=== PATIENT | female | born 1940 | race Caucasian/White ===

== ENCOUNTER 2016-06-30 12:40 | Emergency (ER) | payer MEDICARE, OTHER ==
[2016-06-30 12:59] VITALS: BMI 33.3
[2016-06-30] MEDS ORDERED: MORPHINE 4 MG/ML INJECTION IV ONE ×2 (13:06→14:27)
[2016-06-30] MEDS ORDERED: ONDANSETRON HCL 4 MG/2 ML VIAL IV ONE (13:06)
--- NOTE | 2016-06-30 13:22 | EDPRACDOC ---
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 Mode of Arrival: Ambulance Home Medications: Home Medications Atorvastatin Calcium [Lipitor] 40 mg PO HS 05/02/12 Duloxetine HCl [Cymbalta] 60 mg PO BID 05/02/12 Omeprazole 20 mg PO TID 05/02/12 Albuterol Sulfate [Proair Hfa] 1 - 2 puff INH Q4-6H PRN 01/23/14 Cetirizine HCl 10 mg PO HS 01/23/14 Alprazolam [Xanax] 1 mg PO BID PRN 03/27/15 Amlodipine [Norvasc] 10 mg PO DAILY 03/27/15 Donepezil HCl [Aricept] 10 mg PO QAM 03/27/15 Amiodarone HCl [Pacerone] 200 mg PO DAILY 06/30/16 Carvedilol [Coreg] 12.5 mg PO BID 06/30/16 Gabapentin 300 mg PO TID 06/30/16 Lacosamide [Vimpat] 150 mg PO BID 06/30/16 Levothyroxine [Synthroid, Levoxyl] 100 mcg PO DAILY 06/30/16 Lisinopril [Zestril] 20 mg PO DAILY 06/30/16 Oxycodone HCl [Roxicodone] 5 mg PO Q6H #20 tablet 06/30/16 Phenytoin Sodium Extended [Dilantin] 100 mg PO TID 06/30/16 Warfarin Sodium [Coumadin] 2.5 mg PO Q48H 06/30/16 Warfarin Sodium [Coumadin] 5 mg PO Q48H 06/30/16 Allergies/Adverse Reactions: Allergies Allergy/AdvReac Type Severity Reaction Status Date / Time Iodinated Contrast Media - Allergy Unknown/See Verified 06/30/16 12:59 IV Dye Comments - History of Present Illness Onset: 1.5 hours ago HPI: 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 THE PT C/O PAIN TO HER RIGHT ANKLE. Ankle Problem Location: Reports: Right Mechanism: Reports: None Circumstances: Reports: Tripped Able to Bear Weight: No Pain Severity: Reports: Moderate Associated Signs & Symptoms: Reports: Bruising, Swelling - Treatment Prior to ED Arrival Reported Medications/Treatment [employer] DEVELOPER Medications [employer] DEVELOPER (Medication/ 150/80-85-98% Dose/Time) EMS Treatment BLS IV No ED Past Medical History - Patient Medical History Neurological History: Reports: Dementia Cardiac History: Reports: Hypertension, Congestive Heart Failure (MAR 2015 LAST ADMISSIOIN), Hypercholesterolemia, Syncope Respiratory History: Reports: COPD GI/ History: Reports: Renal Failure (Due to dye is corrected now), Gastroesophageal Reflux Musculoskeletal History: Reports: Arthritis Psychological History: Reports: Depression. Denies: Substance Use Disorder Systemic History: Reports: Anemia, Hypothyroidism. Denies: Cancer Surgical History: Reports: Hysterectomy, Tonsillectomy/Adnoidectomy, Other ( Bladder tack single ovary) Additional Past Surgical History: DEEP BRAIN STIMULATOR IMPLANT - Family Medical History Reports: Hypertension (Mother), Cardiac Disorders (Mother) - Social Medical History Smoking Status: Never smoker Social History: Denies: Substance Use Disorder ETOH: None Substance Abuse: None Lives In: Home EDM Review of Systems - Review of Systems ROS Negative Except as Marked: Yes All systems reviewed and were negative except as marked Musculoskeletal: Ankle - Physical Exam Constitutional: Alert (Awake), No apparent distress Oriented to: Time, Person, Place Last recorded Vital Signs: Oxygen Pulse Oxygen Saturation O2 Device Oxygen Flow Rate Fraction of Inspired Oxygen ( FIO2) - HEENT Head: Normal ( normocephalic) Eye Exam: Normal (PERRL, EOMI, Sclera white) Oropharynx: Normal (Pharynx:Moist without exudate,Gums-no swelling) ENT EAC: Normal TMJ: Normal Nose: No Symptoms Reported (septum midline) Neck: Normal (FROM, trachea at midline) - Respiratory/Cardiovascular Respiratory: Normal - CTA (BBS clear to auscultation without adventitious sounds ) Cardiovascular: Normal (RRR without murmur, gallop or rub) - GI Auscultation: Normal (NABS) Palpation: Normal (Soft,No rebound or guarding, non distended) Tenderness: Non tender Ang's Sign: Negative - Musculoskeletal Back: Normal (Non-Tender) Extremities: Normal (Normal tone, Pulses 2+ No cyanosis or edema, FROM) Musculoskeletal Comment: RIGHT ANKLE SWELLING WITH OBVIOUS DEFORMITY. - Integumentary Skin: Normal, Warm, Dry Lymphatics: Normal (no adenopathy) - Neurologic Memory Impaired: Normal Motor Function: Normal (Normal tone, Pulses 2+ No cyanosis or edema, FROM) Cranial Nerve: Normal (CN II-X11 intact sensation, strength 5/5) Cerebellar: Tremor Mood Description: Normal Perception: Normal ED Procedures - Splinting 1st splint Location: RIGHT ANKLE Hand-Made Type: orthoglass Splint: sugar-tong Pre-Proc Neuro Vasc Exam: normal Post-Proc Neuro Vasc Exam: normal 2nd splint Location: RIGHT ANKLE Hand-Made Type: orthoglass Splint: posterior walking Pre-Proc Neuro Vasc Exam: normal Post-Proc Neuro Vasc Exam: normal - Diagnostic Imaging Ankle Image interpreted by: Radiologist Trimalleolar fracture dislocation of the ankle. Other Image interpreted by: Radiologist POST REDUCTION ANKLE: Postreduction there is improvement in alignment of the right ankle. Again noted mild displaced fracture in distal right tibia and fibula. Casting material artifact are noted. Head Image interpreted by: Radiologist Postreduction there is improvement in alignment of the right ankle. Again noted mild displaced fracture in distal right tibia and fibula. Casting material artifact are noted. Decision Time to Discharge: 16:18 - Departure Yes I personally saw and evaluated the patient. Disposition: Home Condition: Fair Final Diagnosis: Trimalleolar fracture of right ankle, Accidental fall Instructions: RICE: Routine Care for Injuries, Fall Prevention for Older Adults (ED), Ankle Fracture (ED) Education/Counseling Given To: Patient, Family Member Education/Counseling Given Regarding: Diagnosis, Treatment, Follow Up Referrals: Devorah Carrizales MD [Primary Care Provider] - One Week Prescriptions: Oxycodone HCl [Roxicodone] 5 mg PO Q6H #20 tablet ED-Moderate Sedation Procedure - Procedure Indication: ANKLE FRACTURE REDUCTION Informed of risks, benefits and alternatives described.: Yes Informed Consent Signed: Written Physician Performing Procedure: Yes Physician Providing Sedation: Nikki Trained Observer: Darya Tracey - Patient Information Patient Age: 76 History and Physical Completed: Yes - Oxygen Oxygen Flow Rate: 2 Oxygen Delivery Method: Nasal Cannula - Low Vision Therapist Low Vision Therapist: Yes EKG Rhythm: Sinus Rhythm - Adverse Event Adverse Event: Yes Adverse Event Note: PT'S O2 SAT DROPPED BRIEFLY. PT'S AIRWAY OPENED AND SHE WAS PLACED ON NRB FOR A FEW MINUTES. PT WEANED VERY QUICKLY TO RA.
[2016-06-30] MEDS ORDERED: SODIUM CHLORIDE 0.9% 10 ML FLUSH FLUSH PRN (13:35)
--- NOTE | 2016-06-30 14:42 | DIRPT ---
CLINICAL DATA: Fall EXAM: RIGHT ANKLE - COMPLETE 3+ VIEW COMPARISON: None. FINDINGS: Trimalleolar fracture dislocation of the ankle. Destruction of the ankle mortise with lateral subluxation of the talus. Fracture of the distal fibula. Displaced fracture of the medial malleolus. Posterior malleolar fracture also noted. IMPRESSION: Trimalleolar fracture dislocation of the ankle. Electronically Signed By: Marco Antonio Hernandez M.D. On: 06/30/2016 14:39
--- NOTE | 2016-06-30 15:12 | DIRPT ---
CLINICAL DATA: Fall today with head injury. History of CVA and deep brain stimulator. EXAM: CT HEAD WITHOUT CONTRAST TECHNIQUE: Contiguous axial images were obtained from the base of the skull through the vertex without intravenous contrast. COMPARISON: Head CT 04/25/2015. FINDINGS: No evidence of acute intracranial hemorrhage, mass lesion, brain edema or extra-axial fluid collection. There is a metallic stimulator within the left basal ganglia, entering via the left frontal bone. There is new left frontal lobe encephalomalacia consistent with an interval infarct. No CT evidence of acute infarct or hydrocephalus. Mild ventriculomegaly and chronic periventricular white matter disease noted. Intracranial vascular calcifications are noted. The visualized paranasal sinuses, mastoid air cells and middle ears are clear. Left frontal craniotomy noted. No evidence of calvarial fracture. IMPRESSION: 1. No acute posttraumatic findings. 2. Interval left frontal craniotomy for deep brain stimulator placement. Left frontal lobe encephalomalacia consistent with interval infarct in the anterior left MCA distribution. Electronically Signed By: Alexandr Montejo M.D. On: 06/30/2016 15:09
[2016-06-30] MEDS ORDERED: MIDAZOLAM 5 MG/5 ML VIAL IV ONE (15:32)
[2016-06-30] MEDS ORDERED: ETOMIDATE 20 MG/10 ML VIAL IV ONE (15:32)
--- NOTE | 2016-06-30 16:08 | DIRPT ---
CLINICAL DATA: Postreduction EXAM: RIGHT ANKLE - 2 VIEW COMPARISON: 06/30/16 FINDINGS: Two views of the right ankle submitted. Postreduction there is improvement in alignment of the right ankle. Again noted mild displaced fracture in distal right tibia and fibula. Casting material artifact are noted. IMPRESSION: Postreduction there is improvement in alignment of the right ankle. Again noted mild displaced fracture in distal right tibia and fibula. Casting material artifact are noted. Electronically Signed By: Alec Lu M.D. On: 06/30/2016 16:06
[2016-06-30 17:01] VITALS: BP 145/68; PULSE 60; TEMP 98
== END 2016-06-30 16:48 | disposition home or self-care (01) ==
LOC: ED 12:40
DX: S82.851A Displaced trimalleolar fracture of right lower leg, initial encounter for closed fracture (principal); W19.XXXA Unspecified fall, initial encounter; F03.90 Unspecified dementia, unspecified severity, without behavioral disturbance, psychotic disturbance, mood disturbance, and anxiety
CPT/HCPCS: 70450; 73600; 73610; 96374; 96375; 99152; 99285; J2250; J2270; J3490